=== PATIENT | female | born 1970 | race Caucasian/White ===

== ENCOUNTER 2022-04-23 17:10 | Emergency (ER) | payer SELFPAY ==
[~2022-04-23] VITALS: Ht 165.1 cm; Wt 63.5 kg
[~2022-04-23 17:10] MED LIST: ACYCLOVIR800 MG PO; ALBUTEROL0.09 MG/A2 IH; BACTRIM DS 8001 TA1 PO; BACTROBAN CREAM15 GM T; BUSPAR5 MG PO; CELEXA40 MG PO; CEPHALEXIN500 M1 PO; CLARITIN10 MG PO; CYCLOBENZAPRINE10 MG PO; DARVOCET N 1001 TAB PO; DAYPRO600 M1 PO; GABAPENTIN300 MG PO; HYDROCODONE BIT1 T11 PO; LOMOTIL 0.025 M1 TA1 PO; MACROBID100 M1 PO; MEDROL DOSEPAK4 MG PO; MIRALAX POWDER17 G1 PO; MIRALAX17 GM/DOSE PO; MOTRIN800 MG PO; Motrin,Rufen800 MG PO; NEURONTIN300 MG PO; PERCOCET 5-3251 EACH PO; PREDNISONE20 MG PO; PROCTOCREAM-HC30 GM PO; PROVENTIL0.09 MG/AC IH; STOMACH PILL; TRAZADONE HYDR100 MG PO; TRAZODO50 MG PO; TRIMOX500 MG PO; ULTRAM50 MG PO; VICODIN 5/500 505 MG PO; XANAX0.5 MG PO; XANAX1 MG PO; ZITHROMAX Z PA250 MG PO; ZOFRAN ODT4 MG SL
[2022-04-23] MEDS ORDERED: PREDNISONE50 MG PO (17:22)
== END 2022-04-23 19:01 | disposition home or self-care (01) ==
LOC: ED 17:10
DX: M54.32 Sciatica, left side (principal); F17.200 Nicotine dependence, unspecified, uncomplicated; Z90.710 Acquired absence of both cervix and uterus; Z98.890 Other specified postprocedural states